=== PATIENT | male | born 1965 | race Asian ===

== ENCOUNTER 2021-02-26 09:38 | Emergency (ER) | payer OTHER ==
--- NOTE | 2021-02-26 10:07 | EDM.PDOC ---
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 Elvia Braun who is seen him for the first time today. Her history was obtained from the patient through hot bread baker as well. His is here as well and she does understand a bit of Yi. We did use a senior engineer via iPad to obtain history and complete physical examination. He complains of intermittent chest pain for several years. It sounds more like he has gastroesophageal reflux disease. He had an abnormal appearing ECG at the clinic today and was sent over for further evaluation and cardiac rule out. He denies having any chest pain at this time. - Related Data Allergies Allergy/AdvReac Type Severity Reaction Status Date / Time No Known Allergies Allergy Verified 02/26/21 10:04 Home Meds: Home Meds Famotidine IV [Pepcid IV] 20 mg IV BEDTIME #30 sdv 02/26/21 [Rx] Past Medical History - Past Health History Medical/Surgical History: Denies Medical/Surgical History Gastrointestinal History: Reports: GERD (Frequent heartburn and I suspect by history esophagitis with esophageal spasms) Social & Family History - Tobacco Use Tobacco Use Status *Q: Current Every Day Tobacco User Years of Tobacco use: 10 Packs/Tins Daily: 0.5 - Caffeine Use Caffeine Use: Reports: Coffee, Tea - Recreational Drug Use Recreational Drug Use: No - Living Situation & Occupation Living situation: Reports: Occupation: Employed ED ROS GENERAL - Review of Systems Review Of Systems: See Below Constitutional: Denies: Fever, Chills, Malaise, Weakness, Fatigue, Decreased Appetite, Weight Loss HEENT: Reports: No Symptoms Respiratory: Reports: No Symptoms Cardiovascular: Reports: Chest Pain (Planes of lower retrosternal chest pain heartburn at times). Denies: Blood Pressure Problem, Claudication, Dyspnea on Exertion, Edema, Lightheadedness, Orthopnea Endocrine: Reports: No Symptoms GI/Abdominal: Reports: Other (History suggest frequent heartburn with chest pain occurring not always with heartburn suggesting esophageal spasm) : Reports: No Symptoms Musculoskeletal: Reports: No Symptoms Skin: Reports: No Symptoms Neurological: Reports: No Symptoms Psychiatric: Reports: No Symptoms Hematologic/Lymphatic: Reports: No Symptoms Immunologic: Reports: No Symptoms ED EXAM, GENERAL - Physical Exam Exam: See Below Exam Limited By: No Limitations General Appearance: Alert, WD/WN, No Apparent Distress, Thin, Other (His mentioned that he does have a hard time putting on weight. Temperature is 36.1 heart rate was 65 and sinus respiratory to 16 with O2 sats of 100% room air BP 145/90 and later it came down to 132/82.) Eye Exam: Bilateral Eye: Normal Inspection (No blepharal pallor or scleral icterus), PERRL Ears: Normal TMs Throat/Mouth: Normal Inspection, Normal Lips, Normal Oropharynx. No: Normal Teeth Head: Atraumatic, Normocephalic Neck: Normal Inspection, Supple, Non-Tender, Full Range of Motion. No: Carotid Bruit, Lymphadenopathy (L), Lymphadenopathy (R) Respiratory/Chest: No Respiratory Distress, Lungs Clear, Normal Breath Sounds, No Accessory Muscle Use. No: Rales, Rhonchi, Wheezing Cardiovascular: Normal Peripheral Pulses, Regular Rate, Rhythm, No Edema, No Gallop, No Murmur, No Rub Peripheral Pulses: 2+: Posterior Tibial (L), Posterior Tibial (R), Dorsalis Pedis (L), Dorsalis Pedis (R), 3+: Carotid (L), Carotid (R) GI/Abdominal: Normal Bowel Sounds, Soft, No Organomegaly, No Abnormal Bruit, No Mass, Pelvis Stable, Tender. No: Guarding (And is on firm palpation in the epigastrium only), Rigid, Rebound (Male) Exam: No Hernia Back Exam: Normal Inspection, Full Range of Motion. No: CVA Tenderness (L), CVA Tenderness (R) Extremities: Normal Inspection, Normal Range of Motion, Non-Tender, No Pedal Edema Neurological: Alert, Oriented, CN II-XII Intact, Normal Cognition, No Motor/Sensory Deficits Psychiatric: Other (Hard to assess affect and mood due to) Skin Exam: Warm, Dry, Intact, Normal Color, No Rash ( language constraints) #1 Interpretation EKG Date: 02/26/21 Time: 09:49 Rhythm: NSR Rate (Beats/Min): 63 [place]: Normal P-Wave: Enlarged (Left atrial hypertrophy pattern) QRS: Other (Incomplete right bundle branch block pattern. Q-wave present in aVL nonspecific finding) ST-T: Other (Diffuse early repolarization pattern skewing the ST segments upward mimicking myocardial infarction but there is no evidence of ischemia) QT: Normal EKG Interpretation Comments: Abnormal ECG Course - Vital Signs Last Recorded V/S: Last Vital Signs Temp 36.1 C 02/26/21 09:50 Pulse 68 02/26/21 12:23 Resp 16 02/26/21 12:23 BP 120/80 02/26/21 12:23 Pulse Ox 100 02/26/21 12:23 - Orders/Labs/Meds Labs: Laboratory Tests 02/26/21 02/26/21 Range/Units 09:50 09:50 WBC 6.05 (4.23-9.07) K/mm3 RBC 4.73 (4.63-6.08) M/mm3 Hgb 15.2 (13.7-17.5) gm/dl Hct 45.2 (40.1-51.0) % MCV 95.6 H (79.0-92.2) fl MCH 32.1 (25.7-32.2) pg MCHC 33.6 (32.2-35.5) g/dl RDW Std Deviation 42.6 (35.1-43.9) fL Plt Count 283 (163-337) K/mm3 MPV 9.3 L (9.4-12.3) fl Neut % (Auto) 53.9 (34.0-67.9) % Lymph % (Auto) 34.0 (21.8-53.1) % [place] % (Auto) 7.9 (5.3-12.2) % Eos % (Auto) 3.3 (0.8-7.0) Baso % (Auto) 0.7 (0.1-1.2) % Neut # (Auto) 3.26 (1.78-5.38) K/mm3 Lymph # (Auto) 2.06 (1.32-3.57) K/mm3 [place] # (Auto) 0.48 (0.30-0.82) K/mm3 Eos # (Auto) 0.20 (0.04-0.54) K/mm3 Baso # (Auto) 0.04 (0.01-0.08) K/mm3 Sodium 136 (136-145) mEq/L Potassium 3.8 (3.5-5.1) mEq/L Chloride 100 (98-107) mEq/L Carbon Dioxide 28 (21-32) mEq/L Anion Gap 11.8 (5-15) BUN 16 (7-18) mg/dL Creatinine 0.9 (0.7-1.3) mg/dL Est Cr Clr Drug Dosing 77.05 mL/min Estimated GFR (MDRD) > 60 (>60) mL/min BUN/Creatinine Ratio 17.8 (14-18) Glucose 105 H (70-99) mg/dL Calcium 8.9 (8.5-10.1) mg/dL Magnesium 2.0 (1.8-2.4) mg/dL Total Bilirubin 0.3 (0.2-1.0) mg/dL AST 21 (15-37) U/L ALT 30 (16-63) U/L Alkaline Phosphatase 57 (46-116) U/L CK-MB (CK-2) 1.0 (0-3.6) ng/ml Troponin I < 0.017 (0.00-0.056) ng/mL Total Protein 8.1 (6.4-8.2) g/dl Albumin 4.3 (3.4-5.0) g/dl Globulin 3.8 gm/dL Albumin/Globulin Ratio 1.1 (1-2) - Radiology Interpretation Free Text/Narrative:: 55-year-old male [place] descent presents to the ED this am after being seen by Dr. Elvia Braun at [facility] for the first time this morning. Patient went into the clinic for a routine physical exam. Patient speaks only [place]ian and therefore history was obtained through an hot bread baker and of course is limited in ability to obtain a full history. We also used a hot bread baker iPad to obtain history and physical examination. He presents with intermittent chest pains for several years. At present he has no chest pain. He had an abnormal appearing ECG at the clinic and referral was sent to the ED for further evaluation and cardiac rule out. The history would suggest that he likely suffers from intermittent gastroesophageal reflux disease and esophageal spasm. His ECG is abnormal from the point of view it sinus rhythm at 63/min but he has an incomplete right bundle branch block and a marked early repolarization pattern but skews the ST segment upwards making it look like ischemia. He also has a Q-wave in aVL only. There is left atrial hypertrophy. Plan he will have a chest x-ray performed and routine labs obtained. - Re-Assessments/Exams Free Text/Narrative Re-Assessment/Exam: 02/26/21 11:30: Portable chest x-ray reveals normal cardiac silhouette and mediastinum. Lung parenchyma is clear with no pneumothorax or pulmonary infiltrates. 02/26/21 12:01 White count is normal at 6.05. Differential shows 54% neutrophils on the auto differential. Hemoglobin is 15.2 with hematocrit of 45.2. Platelet count 283,000. Sodium is 136 with a potassium of 3.8. Chloride 100 with a bicarb of 28. Anion gap is 11.8. BUN is 16 with a creatinine of 0.9 and a GFR greater than 60. Glucose is 105. Calcium is 8.9 with a magnesium of 2.0. Liver function is normal. Troponin I is less than 0.017 CK-MB fraction is 1.0. Total protein 8.1 with an albumin fraction of 4.3 once again I discussed the findings with the patient and his with through an hot bread baker in the room. It became fairly clear that his current chest pain is mostly lower retrosternal and epigastric and spasmodic suggesting esophageal spasm and he does admit to frequent heartburn. Reassured today that there is no evidence of heart disease. He was of course advised to smoke stop smoking and he smokes around 5 cigarettes a day. His would like him to gain more weight but he is to remain the same weight for the last 5 years. I am going to place the patient on Pepcid 20 mg every night at bedtime for the next few months to see if this will alleviate his symptoms. If not he may well need H. pylori testing and an upper GI endoscopy. Departure - Departure Time of Disposition: 12:22 Disposition: Home, Self-Care 01 Reason for Transfer *Q: Other Condition: Fair Clinical Impression: Non-cardiac chest pain, Chest pain due to GERD Gastroesophageal reflux disease Qualifiers: Esophagitis presence: esophagitis presence not specified Qualified Code(s): K21.9 - Gastro-esophageal reflux disease without esophagitis Prescriptions: Famotidine IV [Pepcid IV] 20 mg IV BEDTIME #30 sdv Instructions: Food Choices for Gastroesophageal Reflux Disease, Adult Referrals: PCP,None [Primary Care Provider] - Forms: ED Department Discharge Additional Instructions: Evaluation in the emergency room today in regards to abnormal ECG identified at the [facility] this morning. History is difficult to obtain as the patient speaks primarily [place] and all history and physical examination were done through the aid of an hot bread baker. Essentially he was worked up to rule out any underlying cardiac disease and none was found. The history strongly suggest gastroesophageal reflux disease with intermittent esophagitis or esophageal spasms. I am going to place the patient on Pepcid 20 mg every night at bedtime and he can follow-up in a month's time with Dr. Braun. If problems persist then H. pylori test should be performed and possible EGD as well. Patient advised he could return to all normal activities and diet Sepsis Event Note (ED) - Focused Exam Vital Signs: Vital Signs Temp Pulse Resp BP Pulse Ox 02/26/21 12:23 68 16 120/80 100 02/26/21 09:50 36.1 C 65 16 145/90 H 100
--- NOTE | 2021-02-26 13:31 | CR ---
Chest: Portable view of the chest was obtained. Comparison: No prior chest imaging is available. Heart size and mediastinum are normal. Lungs are clear with no acute parenchymal change. No acute osseous abnormality is appreciated. Impression: 1. Nothing acute is seen on portable chest x-ray. Diagnostic code #1
== END 2021-02-26 12:27 | disposition home or self-care (01) ==
LOC: JD.ED 09:38
DX: K21.9 Gastro-esophageal reflux disease without esophagitis (principal); Z72.0 Tobacco use
CPT/HCPCS: 36415; 71045; 71045-26; 80053; 82553; 83735; 84484; 85025; 93005; 93010; 99284; 99285-25